=== PATIENT | female | born 1950 | race Caucasian/White ===

== ENCOUNTER → 2017-05-12 | Outpatient (CLI) | payer MEDICARE, MEDICAID | END | disposition home or self-care (01) | LOC: CT 07:27 | PROVIDERS: ATTEND Internal Medicine Geriatric Medicine | DX: K74.69 Other cirrhosis of liver (principal) | CPT/HCPCS: 74176; 76700 ==

== ENCOUNTER → 2019-02-25 | Outpatient (CLI) | payer MEDICARE, MEDICAID | END | disposition home or self-care (01) | LOC: US 07:38 | PROVIDERS: ATTEND Internal Medicine Hematology & Oncology | DX: K74.60 Unspecified cirrhosis of liver (principal); N28.1 Cyst of kidney, acquired; D46.Z Other myelodysplastic syndromes | CPT/HCPCS: 76705 ==

== ENCOUNTER → 2020-06-25 | Outpatient (CLI) | payer MEDICARE ==
[2020-06-25 14:44] LABS: CLARITY URINE CLEAR (CLEAR); COLOR URINE YELLOW (YELLOW); KETONES URINE 2+ (NEGATIVE); LEUKOCYTE ESTERASE URINE 3+ (NEGATIVE); NITRITE URINE NEGATIVE (NEGATIVE); OCCULT BLOOD URINE 2+ (NEGATIVE); PROTEIN URINE NEGATIVE (NEGATIVE); SPECIFIC GRAVITY URINE 1.014 (1.005-1.030); UROBILINOGEN URINE 0.2 E.U./dL (0.2-1.0)
[2020-06-25 14:46] LABS: BASOPHILS % 0.8 % (0.0-2.0); EOSINOPHILS % 1.6 % (0.0-5.0); HEMATOCRIT. 35.2 % (36.0-48.0); LYMPHOCYTES % 19.7 % (20.0-50.0); MEAN CORPUSCULAR VOLUME 93.6 fL (81.0-99.0); MEAN PLATELET VOLUME 9.9 fl (7.4-10.4); MONOCYTES % 4.3 % (2.0-8.0); NEUTROPHILS % 73.6 % (40.0-76.0); PLATELET 65 x1000/uL (130-400); RED BLOOD CELL COUNT 3.76 mill/uL (4.2-5.4); RED CELL DISTRIBUTION WIDTH 13.4 % (11.6-14.6)
[2020-06-25 14:55] LABS: CHLORIDE 109 mEq/L (98-107); INR 1.1; PARTIAL THROMBOPLASTIN TIME 31.3 sec (23.4-31.0); PROTHROMBIN TIME 11.6 sec (9.6-11.0)
[2020-06-27 04:12] LABS: CANCER ANTIGEN 125 22.8 U/mL (0.0-38.1)
== END | disposition home or self-care (01) ==
LOC: LAB 13:52
PROVIDERS: ATTEND Internal Medicine Geriatric Medicine
DX: Z20.828 Contact with and (suspected) exposure to other viral communicable diseases (principal); N84.0 Polyp of corpus uteri; N18.2 Chronic kidney disease, stage 2 (mild)
CPT/HCPCS: 36415; 80053; 81003; 82378; 85025; 85610; 85730; 86304; 86305; 87086; C9803; U0003

== ENCOUNTER 2022-06-02 15:29 | Emergency (ER) | payer OTHER, MEDICAID ==
[~2022-06-02] VITALS: Ht 154.9 cm; Wt 61.0 kg
[2022-06-02 15:42] VITALS: BP 145/74
[2022-06-02] MEDS ORDERED: BACITRACIN 15GM TUBE TOP ONE (23:30)
[2022-06-02] MEDS ORDERED: TETANUS, DIPHTHERIA, PERTUSSIS VAC/PF 0.5ML (>10YR OLD) IM ONE (23:30)
[2022-06-03] MEDS ORDERED: BACITRACIN ZINC OINT UDPKT TOP NR (01:00)
== END 2022-06-03 05:54 | disposition home or self-care (01) ==
LOC: ER 15:29
DX: S00.83XA Contusion of other part of head, initial encounter (principal); W18.39XA Other fall on same level, initial encounter; Y93.89 Activity, other specified; Y92.89 Other specified places as the place of occurrence of the external cause; Y99.8 Other external cause status; D64.9 Anemia, unspecified
CPT/HCPCS: 99284

== ENCOUNTER 2025-07-18 17:15 | Inpatient (IN) | payer OTHER, MEDICAID, MEDICARE ==
[~2025-07-18] VITALS: Ht 152.4 cm; Wt 50.8 kg
[~2025-07-18 17:15] MED LIST: COR3 MT; FURO80TA87 PO; LEVO-65 MT; MIDO5TAB4 MT; OMEP40CA20 MT; SPIR100T5 PO; SUCR1TAB30 MT
[2025-07-18 18:07] VITALS: O2SAT 100
[2025-07-18] MEDS: SODIUM CHLORIDE 0.9% 1,000 ML IV ONE (19:59)
[2025-07-18 20:34] LABS: BASOPHILS % 0.8 % (0.0-2.0); EOSINOPHILS % 0.7 % (0.0-5.0); LYMPHOCYTES % 10.5 % (20.0-50.0); MEAN PLATELET VOLUME 8.8 fl (7.4-10.4); MONOCYTES % 11.4 % (2.0-8.0); NEUTROPHILS % 76.6 % (40.0-76.0); PLATELET 103 x1000/uL (130-400); RED BLOOD CELL COUNT 1.70 mill/uL (4.2-5.4); RED CELL DISTRIBUTION WIDTH 19.7 % (11.6-14.6)
[2025-07-18 20:48] LABS: INR 1.0
[2025-07-18 20:51] LABS: HEMATOCRIT. 16.0 % (36.0-48.0); HEMOGLOBIN. 4.9 g/dL (12.0-16.0)
[2025-07-18 20:54] LABS: CREATININE 1.1 mg/dL (0.6-1.0); TROPONIN I HIGH SENSITIVITY < 4 ng/L (3.0-34); UREA NITROGEN BLOOD 24 mg/dL (9-23)
[2025-07-18 20:56] LABS: ASPARTATE AMINOTRANSFERASE 40 IU/L (<34); BILIRUBIN DIRECT 0.2 mg/dL (<=3.0); BILIRUBIN TOTAL 0.6 mg/dL (0.1-1.0); PROTEIN TOTAL 5.3 g/dL (6.0-8.3)
[2025-07-18] MEDS ORDERED: SODIUM CHLORIDE 0.9% 1,000 ML IV ONE (23:30)
[2025-07-19] VITALS (9 sets, daily range): BP systolic 99–121; BP diastolic 56–73; PULSE 74–81; RESP 13–20; TEMP 36.1956–37; O2SAT 96–100
[2025-07-19] MEDS ORDERED: HYDROCODONE/ACETAMINOPHEN 5/325MG TABLET PO PRN (00:30)
[2025-07-19 08:09] LABS: CREATININE 0.9 mg/dL (0.6-1.0); UREA NITROGEN BLOOD 25 mg/dL (9-23)
[2025-07-19 08:24] LABS: BASOPHILS % 0.6 % (0.0-2.0); EOSINOPHILS % 1.2 % (0.0-5.0); LYMPHOCYTES % 8.5 % (20.0-50.0); MEAN PLATELET VOLUME 8.7 fl (7.4-10.4); MONOCYTES % 9.7 % (2.0-8.0); NEUTROPHILS % 80.0 % (40.0-76.0); PLATELET 96 x1000/uL (130-400); RED BLOOD CELL COUNT 2.05 mill/uL (4.2-5.4); RED CELL DISTRIBUTION WIDTH 18.7 % (11.6-14.6)
[2025-07-19 08:41] LABS: HEMOGLOBIN. 5.9 g/dL (12.0-16.0)
[2025-07-19 08:42] LABS: HEMATOCRIT. 18.4 % (36.0-48.0)
[2025-07-20] VITALS: BP 111/63; PULSE 78; RESP 18; TEMP 36.4; O2SAT 99
[2025-07-20 04:00] VITALS: BP 99/63; PULSE 84; RESP 18; TEMP 36.7; O2SAT 100
[2025-07-20 08:00] VITALS: BP 100/57; PULSE 80; RESP 18; TEMP 35.7; O2SAT 99
[2025-07-20] MEDS: FUROSEMIDE 40MG/4ML VIAL IVP SCH (08:16)
[2025-07-20] MEDS: SPIRONOLACTONE 50MG TABLET PO SCH (08:17)
[2025-07-20 12:00] VITALS: BP 101/52; PULSE 86; RESP 18; TEMP 35.9; O2SAT 98
[2025-07-20 16:00] VITALS: BP 100/57; PULSE 83; RESP 16; TEMP 36.5; O2SAT 97
[2025-07-20 20:00] VITALS: BP 110/60; PULSE 84; RESP 16; TEMP 36.6; O2SAT 99
[2025-07-21] VITALS: BP 100/56; PULSE 84; RESP 16; TEMP 36.6; O2SAT 99
[2025-07-21 04:00] VITALS: BP 98/60; PULSE 80; RESP 16; TEMP 36.6; O2SAT 99
[2025-07-21 08:00] VITALS: BP 106/58; PULSE 88; RESP 18; TEMP 36.7; O2SAT 96
[2025-07-21] MEDS ORDERED: SODIUM BICARBONATE 4.2% 2.5MEQ/5ML VIAL IV ONE (08:12)
[2025-07-21] MEDS ORDERED: LIDOCAINE HCL 1% 10 MG/ML 10ML VIAL ONE (08:12)
[2025-07-21 12:22] VITALS: BP 111/69; RESP 20; TEMP 36.3; O2SAT 97
[2025-07-21 15:18] VITALS: BP 112/68; PULSE 78; RESP 20; TEMP 98
[2025-07-21 16:00] VITALS: BP 110/65; PULSE 78; RESP 20; TEMP 36.7; O2SAT 96
== END 2025-07-21 18:15 | disposition home or self-care (01) | DRG 809 ==
LOC: ER 17:15 → 8WST 21:56 → EDBEDREQ 22:09 → EDBEDREQTM 22:09 → ENRESERV 22:58
PROVIDERS: ADMIT Internal Medicine; ATTEND Internal Medicine
PROC: 30233N1 Transfusion of Nonautologous Red Blood Cells into Peripheral Vein, Percutaneous Approach (ICD-10-PCS; principal; 2025-07-18)
PROC: 0W9G3ZZ Drainage of Peritoneal Cavity, Percutaneous Approach (ICD-10-PCS; 2025-07-21)
DX: D61.818 Other pancytopenia (principal); E44.1 Mild protein-calorie malnutrition; R18.8 Other ascites; D64.9 Anemia, unspecified; K74.60 Unspecified cirrhosis of liver; Z68.21 Body mass index [BMI] 21.0-21.9, adult
CPT/HCPCS: 36415; 49083; 76881; 80048; 80076; 83880; 84484; 85014; 85018; 85025; 86850; 86900; 86920; 93005; 96360; 99285; J1938; J2003; J3490; J7030; P9016

== ENCOUNTER 2025-08-09 16:46 | Inpatient (IN) | payer OTHER, MEDICAID ==
[~2025-08-09] VITALS: Ht 149.9 cm; Wt 51.7 kg
[2025-08-09 16:57] VITALS: O2SAT 100
[2025-08-09] MEDS: MORPHINE SULFATE 2 MG/ML INJ (NOT FOR IM USE) IV ONE (17:15)
[2025-08-09 18:05] LABS: HEMATOCRIT. 21.1 % (36.0-48.0); MEAN PLATELET VOLUME 8.6 fl (7.4-10.4); PLATELET 105 x1000/uL (130-400); RED BLOOD CELL COUNT 2.28 mill/uL (4.2-5.4); RED CELL DISTRIBUTION WIDTH 20.0 % (11.6-14.6)
[2025-08-09 18:07] LABS: HEMOGLOBIN. 6.6 g/dL (12.0-16.0)
[2025-08-09 18:22] LABS: LYMPHOCYTES % MANUAL 7.0 % (20.0-60.0); MONOCYTES % MANUAL 11.0 % (2.0-8.0); NEUTROPHILS % MANUAL 82.0 % (45.0-75.0)
[2025-08-09 18:23] LABS: PLATELET ESTIMATE NORMAL
[2025-08-09 18:28] LABS: CREATININE 0.8 mg/dL (0.6-1.0); TROPONIN I HIGH SENSITIVITY < 4 ng/L (3.0-34)
[2025-08-09 18:29] LABS: UREA NITROGEN BLOOD 29 mg/dL (9-23)
[2025-08-09 18:30] LABS: ASPARTATE AMINOTRANSFERASE 54 IU/L (<34)
[2025-08-09 18:31] LABS: BILIRUBIN DIRECT 0.4 mg/dL (<=3.0); BILIRUBIN TOTAL 1.0 mg/dL (0.1-1.0); PROTEIN TOTAL 5.6 g/dL (6.0-8.3)
[2025-08-09 18:44] LABS: INR 1.0
[2025-08-09] MEDS: FUROSEMIDE 20MG/2ML VIAL IVP ONE (19:00)
[2025-08-09] MEDS ORDERED: MAGNESIUM/ALUMINUM HYDROXIDE/SIMETHICONE 30ML UDC PO PRN (19:45)
[2025-08-09] MEDS ORDERED: ONDANSETRON HCL 4MG/2ML INJ IV PRN (19:45)
[2025-08-09] MEDS ORDERED: MORPHINE SULFATE 2 MG/ML INJ (NOT FOR IM USE) IV PRN (19:45)
[2025-08-09] MEDS ORDERED: HYDROCODONE/ACETAMINOPHEN 5/325MG TABLET PO PRN (19:45)
[2025-08-09] MEDS ORDERED: CLONIDINE 0.1MG TABLET PO PRN (19:45)
[2025-08-09] MEDS ORDERED: ZOLPIDEM TARTRATE 5MG TABLET PO PRN (19:45)
[2025-08-09] MEDS ORDERED: NALOXONE HCL 0.4MG/ML VIAL IV PRN (19:45)
[2025-08-09] MEDS ORDERED: ACETAMINOPHEN 325MG TABLET PO PRN (19:45)
[2025-08-09 21:10] VITALS: BP 111/55; PULSE 85; RESP 20; TEMP 37.1408
[2025-08-10] VITALS: BP 103/46; PULSE 80; RESP 18; TEMP 36.4; O2SAT 97
[2025-08-10 04:00] VITALS: BP 98/57; PULSE 83; RESP 18; TEMP 36.7; O2SAT 100
[2025-08-10 06:39] LABS: HEMATOCRIT. 25.0 % (36.0-48.0); HEMOGLOBIN. 8.2 g/dL (12.0-16.0); MEAN PLATELET VOLUME 8.5 fl (7.4-10.4); PLATELET 88 x1000/uL (130-400); RED BLOOD CELL COUNT 2.81 mill/uL (4.2-5.4); RED CELL DISTRIBUTION WIDTH 17.3 % (11.6-14.6)
[2025-08-10 06:50] LABS: CREATININE 0.7 mg/dL (0.6-1.0); UREA NITROGEN BLOOD 31 mg/dL (9-23)
[2025-08-10 08:00] VITALS: BP 108/53; PULSE 75; RESP 17; TEMP 36.3; O2SAT 98
[2025-08-10] MEDS: PANTOPRAZOLE SODIUM 40 MG/VIAL IV SCH (10:08)
[2025-08-10 11:07] LABS: BAND% 3.0 % (1.0-6.0); LYMPHOCYTES % MANUAL 8.0 % (20.0-60.0); MONOCYTES % MANUAL 7.0 % (2.0-8.0); NEUTROPHILS % MANUAL 82.0 % (45.0-75.0)
[2025-08-10 11:08] LABS: PLATELET ESTIMATE DECREASED
[2025-08-10 12:00] VITALS: BP 103/63; PULSE 77; RESP 18; TEMP 36.7; O2SAT 97
[2025-08-10 16:00] VITALS: BP 111/63; PULSE 77; RESP 18; TEMP 36.5; O2SAT 98
[2025-08-10 20:00] VITALS: BP 117/64; PULSE 82; RESP 18; TEMP 36.8; O2SAT 96
[2025-08-11] VITALS (7 sets, daily range): BP systolic 100–132; BP diastolic 54–77; PULSE 78–85; RESP 17–22; TEMP 36.3–36.8; O2SAT 95–100
[2025-08-11] MEDS ORDERED: MORPHINE SULFATE 4 MG/ML INJ (FOR IV/IM USE) IV PRN (00:12)
[2025-08-11] MEDS ORDERED: LIDOCAINE HCL 1% 10 MG/ML 10ML VIAL ONE (07:57)
[2025-08-11 08:17] LABS: BASOPHILS % 0.7 % (0.0-2.0); EOSINOPHILS % 0.8 % (0.0-5.0); HEMATOCRIT. 26.6 % (36.0-48.0); HEMOGLOBIN. 8.6 g/dL (12.0-16.0); LYMPHOCYTES % 8.5 % (20.0-50.0); MEAN PLATELET VOLUME 8.2 fl (7.4-10.4); MONOCYTES % 9.6 % (2.0-8.0); NEUTROPHILS % 80.4 % (40.0-76.0); PLATELET 92 x1000/uL (130-400); RED BLOOD CELL COUNT 2.97 mill/uL (4.2-5.4); RED CELL DISTRIBUTION WIDTH 17.4 % (11.6-14.6)
[2025-08-11 08:23] LABS: CREATININE 0.6 mg/dL (0.6-1.0); UREA NITROGEN BLOOD 24 mg/dL (9-23)
[2025-08-11 11:31] LABS: PROTEIN BODY FLUID < 2.0 gm/dL
[2025-08-11 13:53] LABS: BODY FLUID MONOCYTES 12 %; BODY FLUID RBC 324 /cu mm (0-2000); BODY FLUID WBC 15 /cu mm (0-200)
== END 2025-08-11 20:35 | disposition home or self-care (01) | DRG 433 ==
LOC: ER 16:46 → EDBEDREQ 17:14 → 8WST 18:28 → EDBEDREQ 18:34 → EDBEDREQTM 18:34
PROVIDERS: ADMIT Internal Medicine; ATTEND Internal Medicine
PROC: 30233N1 Transfusion of Nonautologous Red Blood Cells into Peripheral Vein, Percutaneous Approach (ICD-10-PCS; 2025-08-09)
PROC: 0W993ZZ Drainage of Right Pleural Cavity, Percutaneous Approach (ICD-10-PCS; principal; 2025-08-11)
PROC: 0W9G3ZX Drainage of Peritoneal Cavity, Percutaneous Approach, Diagnostic (ICD-10-PCS; 2025-08-11)
DX: K70.31 Alcoholic cirrhosis of liver with ascites (principal); J90 Pleural effusion, not elsewhere classified; D64.9 Anemia, unspecified; E11.9 Type 2 diabetes mellitus without complications; I10 Essential (primary) hypertension; E87.70 Fluid overload, unspecified; B19.20 Unspecified viral hepatitis C without hepatic coma; Z55.6 Problems related to health literacy; Z79.899 Other long term (current) drug therapy; Z91.199 Patient's noncompliance with other medical treatment and regimen due to unspecified reason; Z91.018 Allergy to other foods
CPT/HCPCS: 32555; 36415; 49083; 71045; 76604; 76705; 80048; 80076; 80320; 83615; 84443; 84484; 85025; 86850; 86900; 86920; 88108; 93970; 96374; 97166; 99291; J1938; J2003; J2470; P9016; G0480